=== PATIENT | male | born 1955 ===

== ENCOUNTER → 2021-10-27 | Outpatient (CLI) | payer MEDICARE ==
[2021-10-27] VITALS (8 sets, daily range): BP systolic 100–116; BP diastolic 40–67
[~2021-10-27] MED LIST: ACETAMINOPHEN325 M2 PEG; AMOXICILLIN500 M2 PEG; AMOXICILLIN500 M2 PO; ARANESP40 MCG/0.4 SC; ASPIRIN CHEWABL81 MG PEG; BUSPIRONE10 MG PEG; CARVEDILOL3.125 MG PEG; CELEXA20 MG PEG; DULCOLAX10 M1 R; FLEET ENEMA 13133 ML R; HEPARIN SO5000 UNIT1 SQ; HUMALOG100 UNIT/2 SC; INSULIN AS100 UNIT/1 SQ; INSULIN GL100 UNIT/3 SC; Ipratropium Brom3 ML INH; KEPPRA100 MG/1 M PEG; LAC-HYDRIN FIV226 GM T; LASIX40 MG PEG; LASIX40 MG PO; LEVOFLOXACIN PEG; LEVOFLOXACIN PO; LIPITOR40 MG PEG; LISINOPRIL2.5 MG PEG; LUBRICANT EYE1 EACH OP; LYVISPAH5 MG PEG; MAG-AL LIQUID 230 ML PEG; MIDODRINE HCL10 MG PEG; MIRALAX POWDER17 G1 PEG; MOM30 M1 PEG; NATURE'S BLEND F1 MG PEG; ONDANSETRON HYDR4 M1 PEG; OXYCODONE10 MG/0.5 PEG; PANTOPRAZOLE SO40 M2 GT; PERCOCET 2.5-31 EACH PO; PERIDEX118 ML MM; PHENOBARBITAL32.4 M2 PEG; POTASSIUM20 MEQ/16 PEG; PROVENTIL HFA6.7 GM INH; SANTYL30 GM T; SENNA LAX8.6 M1 PEG; VITAMIN D3125 MCG PEG
== END | disposition home or self-care (01) ==
LOC: TRNFUSION 01:24
PROVIDERS: ATTEND Internal Medicine
DX: D50.9 Iron deficiency anemia, unspecified (principal); I10 Essential (primary) hypertension; E11.9 Type 2 diabetes mellitus without complications; I63.9 Cerebral infarction, unspecified; E78.5 Hyperlipidemia, unspecified; N17.9 Acute kidney failure, unspecified; N31.0 Uninhibited neuropathic bladder, not elsewhere classified; K25.9 Gastric ulcer, unspecified as acute or chronic, without hemorrhage or perforation; K56.7 Ileus, unspecified; J96.01 Acute respiratory failure with hypoxia; M62.81 Muscle weakness (generalized); G40.909 Epilepsy, unspecified, not intractable, without status epilepticus; R13.12 Dysphagia, oropharyngeal phase; R49.1 Aphonia; Z99.11 Dependence on respirator [ventilator] status

== ENCOUNTER 2022-01-06 07:10 | Emergency (ER) | payer MEDICARE ==
[~2022-01-06] VITALS: Wt 108.9 kg
[~2022-01-06 07:10] MED LIST changes: +BASAG SOL SQ; +DALVANCE500 MG IV; +HEPARIN SO5000 UNIT4 SQ; +LASIX20 MG PEG; +NOVOLOG100 UNIT/1 SC; +UNASYN 3GM3 GM/100 M IV; +VENTOLIN 02.5 MG/3 M INH
[2022-01-06 07:43] LABS: BASO # 0.1 10*3/uL (0.0-0.1); BASO % 0.3 % (0.0-1.0); EOS # 0.3 10*3/uL (0.0-0.4); HEMATOCRIT 27.3 % (42.0-52.0); LYMPH # 0.6 10*3/uL (1.3-4.4); LYMPH % 4.4 % (27.0-41.0); MEAN CELL VOLUME 95.5 fl (80.0-94.0); MEAN CORPUSCULAR HGB 28.3 pg (27.0-31.0); MEAN CORPUSCULAR HGB CONC 29.7 g/dl (33.0-37.0); MEAN PLATELET VOLUME 11.5 fl (9.6-12.3); MONO # 0.6 10*3/uL (0.1-1.0); MONO % 4.3 % (3.0-9.0); NEUT # 12.7 10*3/uL (2.3-7.9); NEUT % 88.6 % (47.0-73.0); PLATELET COUNT AUTOMATED 409 10*3/uL (130-400); RED BLOOD COUNT 2.86 10*6/uL (4.50-5.90); RED CELL DISTRI WIDTH 16.5 % (0-14.5); WHITE BLOOD COUNT 14.3 10*3/uL (4.8-10.8)
[2022-01-06 07:54] LABS: ACT PARTIAL THROMBO TIME 28.8 SECONDS (20.0-32.1)
[2022-01-06 07:59] LABS: ALKALINE PHOSPHATASE 109 U/L (45-117); BUN 28 mg/dl (7-24); CHLORIDE 97 mmol/L (98-107); POTASSIUM 4.2 mmol/L (3.5-5.1); SGOT/AST 20 IU/L (3-35); SGPT/ALT 20 U/L (12-78); SODIUM 136 mmol/L (136-145); TOTAL PROTEIN 7.7 gm/dL (6.4-8.2)
[2022-01-06 15:34] LABS: ABG BASE EXCESS 8.6 mmol/L (-2.0-2.0); ARTERIAL BLOOD GAS PH 7.355 (7.35-7.45); ARTERIAL BLOOD GAS PO2 54.1 (80-90)
== END 2022-01-06 21:00 | disposition short-term general hospital (02) ==
LOC: ED 07:10
PROVIDERS: Emergency Medicine
DX: A41.9 Sepsis, unspecified organism (principal); K21.9 Gastro-esophageal reflux disease without esophagitis; E78.5 Hyperlipidemia, unspecified; E11.9 Type 2 diabetes mellitus without complications; Z88.1 Allergy status to other antibiotic agents; Z79.899 Other long term (current) drug therapy; Z79.82 Long term (current) use of aspirin; Z87.891 Personal history of nicotine dependence; Z98.890 Other specified postprocedural states